=== PATIENT | male | born 1965 | race African-American/Black ===

== ENCOUNTER 2017-05-08 07:26 | Day surgery (SDC) | payer OTHER ==
[~2017-05-08] VITALS: Ht 175.3 cm; Wt 98.0 kg
--- NOTE | ~2017-05-08 | OP ---
PATIENT NAME: BRAD KUHN MEDICAL RECORD: [id number] :63 LOCATION:[facility] ADMISSION DATE: SURGEON: ROGELIO GARZA MD DATE OF OPERATION: 05/08/2017 PREOPERATIVE DIAGNOSES: 1. Right inguinal hernia. 2. Hypertension. 3. Hyperlipidemia. POSTOPERATIVE DIAGNOSES: 1. Right inguinal hernia. 2. Hypertension. 3. Hyperlipidemia. PROCEDURE: Right inguinal hernia repair with extended PHS mesh. SURGEON: Rogelio Garza MD REPORT OF PROCEDURE: The patient's right groin was prepped and draped in sterile fashion. An oblique incision was made above the inguinal ligament. Electrocautery was used to dissect through the subcutaneous tissues to the external oblique fascia. This fascia was opened up to the external ring using electrocautery. The ilioinguinal nerve was found and high ligated. The spermatic cord was elevated and a Sonny was placed around it. The patient had a direct hernia defect which was dissected free from the spermatic cord. There were no contents within the hernia defect at this time. There was a large cord lipoma also associated with this. The hernia sac was highly ligated with a 2-0 silk tie and placed back into the abdominal cavity. The cord lipoma was also placed back into the abdominal cavity. We then opened up the inguinal floor and opened up the preperitoneal space of Retzius and extended PHS mesh was inserted into this space and sutured down on all 4 sides using multiple interrupted 0 Vicryls. The wound was then irrigated out with normal saline and care was taken to assure there was no sign of any bleeding. At this point, the external oblique fascia was closed with running 2-0 Vicryl, Jass's was closed with interrupted 3-0 Vicryls, and the skin was closed with running subcutaneous 5-0 Monocryl. A 10 mL of 0.25% Marcaine plain was infused into the surrounding tissues and the wounds were dressed appropriately. COMPLICATIONS: None. CONDITION: Stable. ANESTHESIA: General endotracheal and local. BLOOD LOSS: Minimal. TRANSINT:[id number] Voice Confirmation ID: [id number] DOCUMENT ID: [id number] OPERATIVE REPORT [id number] BRAD KUHN ROGELIO GARZA MD at 1135 CC: [id number] DICTATION DATE: 05/08/17 1216 JINRIKSHA DRIVER: 05/08/17 1235 DEP SDC 05/08/17 [id number] [place] [id number]
[~2017-05-08 07:26] MED LIST: ZYLOPRIM100 MG PO
[2017-05-08 08:34] LABS: BASOPHILS 0.1 % (0-2); EOSINOPHILS 2.4 % (0-7); HEMATOCRIT 44.8 % (42.0-54.0); HEMOGLOBIN 14.8 g/dL (13.5-17.5); IMMATURE GRANULOCYTES 0.4 % (0-5); LYMPHOCYTES 38.5 % (15-50); MCH 27.2 pg (26.0-34.0); MCV 82.4 fL (80.0-100.0); MEAN PLATELET VOLUME 9.7 fL (7.4-10.4); MONOCYTES 6.8 % (2-11); NEUTROPHILS 51.8 % (40-80); PLATELET COUNT 197 10x3/uL (130-400); RBC 5.44 10x6/uL (4.20-6.10); RDW 14.2 % (11.5-14.5); WBC 7.1 10x3/uL (4.8-10.8)
[2017-05-08 08:55] LABS: CALC OSMOLALITY 284 mosm/kg (275-300); CALCIUM 8.3 mg/dL (8.5-10.1); CARBON DIOXIDE 27.7 mmol/L (21.0-32.0); CHLORIDE - SERUM 107 mmol/L (98-107); CREATININE - SERUM 0.8 mg/dL (0.6-1.3); GLUCOSE 123 mg/dL (74-106); POTASSIUM - SERUM 3.5 mmol/L (3.5-5.1); SODIUM 142 mmol/L (136-145); UREA NITROGEN 16 mg/dL (7-18); eGFR NON AFRICAN AMERICAN > 90 mL/min (90-120)
[2017-05-08 09:27] VITALS: BP 135/93; Ht 175.3 cm; Wt 98.0 kg
[2017-05-08] MEDS ORDERED: HYDROCODONE-APA1 TAB PO (12:10)
== END 2017-05-08 15:00 | disposition home or self-care (01) ==
LOC: D.OPS 07:26
PROVIDERS: Surgery
DX: K40.90 Unilateral inguinal hernia, without obstruction or gangrene, not specified as recurrent (principal); D17.6 Benign lipomatous neoplasm of spermatic cord; I10 Essential (primary) hypertension; E78.5 Hyperlipidemia, unspecified; Z01.812 Encounter for preprocedural laboratory examination